=== PATIENT | female | born 1990 | race Caucasian/White ===

== ENCOUNTER 2021-03-17 08:12 | Emergency (ER) | payer MEDICAID, OTHER ==
[~2021-03-17] VITALS: Ht 157.5 cm; Wt 56.7 kg
--- NOTE | 2021-03-17 08:25 | NUR ---
[email or web address], medical screening exam in progress
[2021-03-17 08:34] LABS: *URINE HCG, QUAL NEGATIVE (NEGATIVE)
[2021-03-17 08:37] LABS: *CLARITY,URINE CLEAR (CLEAR); *COLOR,URINE YELLOW (YELLOW)
[2021-03-17 08:38] LABS: *BILIRUBIN,URIN NEGATIVE (NEGATIVE); *BLOOD, URINE TRACE (NEGATIVE); *KETONES,URINE NEGATIVE (NEGATIVE); *UROBILINOGEN,URINE 0.2 E.U./dl (NORMAL); LEUKOCYTE ESTERASE ,URINE 1+ (NEGATIVE); NITRITE, URINE NEGATIVE (NEGATIVE); UGLUCOSE NEGATIVE (NEGATIVE)
[2021-03-17] MEDS ORDERED: CEPH500C2 PO (08:50)
--- NOTE | 2021-03-17 08:50 | NUR ---
Patient discharged to home in stable condition. Written and verbal after care instructions given to patient in [place]. Patient verbalizes understanding & compliance of instructions. Stressed follow up with primary doctor and [employer] coach or return to ER for worsening s/s.
[2021-03-17 13:34] LABS: RBC,URINE 0-3 /HPF (0-3)
[2021-03-17 13:35] LABS: BACTERIA,URINE MODERATE /HPF (NONE SEEN); SQUAMOUS EPITHELIAL CELL,UR FEW /HPF (NONE SEEN); WBC,URINE 20-50 /HPF (0-3)
== END 2021-03-17 08:54 | disposition home or self-care (01) ==
LOC: ER 08:12
DX: N30.00 Acute cystitis without hematuria (principal)
CPT/HCPCS: 84703; 87077; 87086; A4663

== ENCOUNTER 2022-03-25 12:16 | Emergency (ER) | payer OTHER ==
[~2022-03-25] VITALS: Ht 157.5 cm; Wt 56.7 kg
[~2022-03-25 12:16] MED LIST: CEPH500C2 PO
[2022-03-25] MEDS ORDERED: AMOX875T2 PO (13:07)
--- NOTE | 2022-03-25 13:30 | NUR ---
Patient discharged to home in stable condition. Written and verbal after care instructions given. Patient verbalizes understanding of instructions. Stressed follow up or return to ER for worsening s/s.
== END 2022-03-25 13:30 | disposition home or self-care (01) ==
LOC: ER 12:16
DX: J02.9 Acute pharyngitis, unspecified (principal)
CPT/HCPCS: A4663

== ENCOUNTER 2022-04-04 14:48 | Emergency (ER) | payer OTHER ==
[~2022-04-04] VITALS: Ht 162.6 cm; Wt 60.3 kg
[~2022-04-04 14:48] MED LIST changes: +AMOX875T2 PO
[2022-04-04] MEDS ORDERED: FLUCONAZOLE 100 MG TABLET PO ONE (15:15)
--- NOTE | 2022-04-04 15:18 | NUR ---
DR COY AT BEDSIDE FOR EVALUATION.
[2022-04-04] MEDS ORDERED: FLUCONAZOLE 100 MG TABLET ONE (15:33)
[2022-04-05] MEDS ORDERED: PRED50TA PO (09:45)
[2022-04-05] MEDS ORDERED: DIPH50CA37 GT (09:45)
== END 2022-04-04 16:26 | disposition home or self-care (01) ==
LOC: ER 14:48
DX: B37.3 Candidiasis of vulva and vagina (principal); L50.9 Urticaria, unspecified; Z90.49 Acquired absence of other specified parts of digestive tract
CPT/HCPCS: A4663

== ENCOUNTER 2022-04-05 08:12 | Emergency (ER) | payer OTHER ==
[~2022-04-05] VITALS: Ht 157.5 cm; Wt 57.6 kg
[2022-04-05] MEDS ORDERED: diphenhydrAMINE 50 MG CAPSULE PO ONE (08:30)
[2022-04-05] MEDS ORDERED: diphenhydrAMINE 50 MG CAPSULE ONE (08:45)
[2022-04-05] MEDS ORDERED: predniSONE 50 MG TABLET PO ONE (09:00)
[2022-04-05] MEDS ORDERED: predniSONE 50 MG TABLET ONE (09:14)
[2022-04-05] MEDS ORDERED: FAMOTIDINE. 20 MG/2 ML VIAL IV ONE ×2 (09:41→09:45)
[2022-04-05] MEDS ORDERED: DIPH50CA37 GT (09:45)
[2022-04-05] MEDS ORDERED: PRED50TA PO (09:45)
== END 2022-04-05 11:20 | disposition home or self-care (01) ==
LOC: ER 08:12
DX: L50.9 Urticaria, unspecified (principal)
CPT/HCPCS: 96374; 99284; J3490; J7512; Q0163; A4663